=== PATIENT | female | born 1965 | race Caucasian/White ===

== ENCOUNTER → 2020-11-16 13:42 | Outpatient (BNVA) | payer OTHER, SELFPAY | PROVIDERS: Visit Provider Physician Assistant | DX: K21.9 Gastro-esophageal reflux disease without esophagitis (principal); K59.09 Other constipation; Z12.11 Encounter for screening for malignant neoplasm of colon | CPT/HCPCS: Q3014 ==

== ENCOUNTER 2021-02-02 09:56 | Outpatient (REF) | payer OTHER, SELFPAY ==
--- NOTE | ~2021-02-02 | XR_ITS ---
EXAMINATION: LEFT KNEE AND LEFT ANKLE X-RAYS CLINICAL INFORMATION: Pain COMPARISON: None TECHNIQUE: 4 views of the left knee and 3 views of the left ankle FINDINGS: Left knee: Bone alignment is normal. No fracture or dislocation is seen. There is a sclerotic density in the medial femoral condyle probably representing a bone island. Joint spaces are normal. There is no joint effusion. Left ankle: Bone alignment is normal. No fracture or dislocation is seen. The ankle mortise is normal. There may be arthritis or partial ankylosis of the posterior calcaneal talar joint. Soft tissues are unremarkable. XR/XR knee LT 4V IMPRESSION: Left knee: Small sclerotic density in the medial femoral condyle probably representing a bone island. 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
--- NOTE | ~2021-02-02 | XR_ITS ---
EXAMINATION: LEFT KNEE AND LEFT ANKLE X-RAYS CLINICAL INFORMATION: Pain COMPARISON: None TECHNIQUE: 4 views of the left knee and 3 views of the left ankle FINDINGS: Left knee: Bone alignment is normal. No fracture or dislocation is seen. There is a sclerotic density in the medial femoral condyle probably representing a bone island. Joint spaces are normal. There is no joint effusion. Left ankle: Bone alignment is normal. No fracture or dislocation is seen. The ankle mortise is normal. There may be arthritis or partial ankylosis of the posterior calcaneal talar joint. Soft tissues are unremarkable. XR/XR ankle LT min 3V IMPRESSION: Left knee: Small sclerotic density in the medial femoral condyle probably representing a bone island. 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
== END 2021-02-02 09:57 | disposition home or self-care (01) ==
LOC: HO.XRAY 09:56
PROVIDERS: PCP Nurse Practitioner; Visit Provider Nurse Practitioner
DX: M25.572 Pain in left ankle and joints of left foot (principal)
CPT/HCPCS: 73564; 73610

== ENCOUNTER 2021-06-14 07:33 | Day surgery (SDC) | payer OTHER, SELFPAY ==
--- NOTE | 2021-06-13 10:56 | HO.ANESPROP2 ---
Documented by User: Catherine Sharif NP 06/13/21 10:56 HPI - Anesthesia Eval Consult details Narrative: 55yo F for Colonoscopy PMFSH Active Problems Active Problems: All Active Problems (Updated 11/16/20 @ 14:15 by Jennifer Cueto PA-C) Encounter for screening colonoscopy (Acute) Chronic constipation (Acute) Acid reflux (Acute) Past Medical History Medical History Acid reflux Chronic constipation Family History Family History Unknown Colon cancer Surgical History Surgical History History of esophagogastroduodenoscopy (EGD) History of hysterectomy Social History Social History Household Members: Children Household Members Other:: daughter Alcohol intake: never Patient Tobacco Use Status: Never used Tobacco Use of substances other than those prescribed or required for medical reasons: No Are you DNR?: No Advance Directives: No Advance Directives Information Provided: Yes Recently lost weight without trying: No Patient : No Current occupational status: disabled Meds Allergies Allergy/AdvReac Type Severity Reaction Status Date / Time No Known Allergies Allergy Verified 11/16/20 13:43 Home Medications Medication Instructions Recorded Confirmed Last Taken Type docusate sodium 100 mg capsule 100 mg PO DAILY 11/16/20 03/20/21 Unknown History famotidine 20 mg tablet 20 mg PO BID 11/16/20 03/20/21 Unknown History fluoxetine 20 mg capsule 60 mg PO QAM 11/16/20 03/20/21 Unknown History sennosides 8.6 mg tablet 17.2 mg PO DAILY 11/16/20 03/20/21 Unknown History Exam Exam Date and Time: June 13, [id number] Assessment and Plan Assessment Anesthesia Assessment: Chart Reviewed Documented by User: Marilin Jones MD 06/14/21 08:39 PMFSH Past Medical History Medical History Acid reflux Chronic constipation Functional capacity: independent ambulation Patient : No Family History Family History Unknown Colon cancer Family history of problems with anesthesia: No Surgical History Surgical History History of esophagogastroduodenoscopy (EGD) History of hysterectomy History of Problems with Anesthesia: No Social History Social History Household Members: Children Household Members Other:: daughter Alcohol intake: never Patient Tobacco Use Status: Never used Tobacco Use of substances other than those prescribed or required for medical reasons: No Are you DNR?: No Advance Directives: No Advance Directives Information Provided: Yes Recently lost weight without trying: No Patient : No Current occupational status: disabled Meds Allergies Allergy/AdvReac Type Severity Reaction Status Date / Time No Known Allergies Allergy Verified 11/16/20 13:43 Home Medications Medication Instructions Recorded Confirmed Last Taken Type docusate sodium 100 mg capsule 100 mg PO DAILY 11/16/20 03/20/21 Unknown History famotidine 20 mg tablet 20 mg PO BID 11/16/20 03/20/21 Unknown History fluoxetine 20 mg capsule 60 mg PO QAM 11/16/20 03/20/21 Unknown History sennosides 8.6 mg tablet 17.2 mg PO DAILY 11/16/20 03/20/21 Unknown History Exam Airway Mallampati Class: II TM Dist: >3cm Neck ROM: Full Heart: RRR Lungs: CTA Assessment and Plan Final Anesthetic Review Family History of Problems with Anesthesia: No History of Problems with Anesthesia: No
[2021-06-14 08:00] VITALS: BP 128/72; PULSE 76; RESP 15; TEMP 36.2; O2SAT 96; BMI 26.6
[2021-06-14] MEDS: Lactated Ringers 1,000 ML 100 ML IVCONT (08:09)
--- NOTE | 2021-06-14 08:33 | MHC.SHP ---
Pre-Procedural Eval Section A Date of Service: 06/14/21 Section B Chief Complaint: Screening Relevant Family History (Specify if Yes): Yes Relevant Social History: None Present Medications: see Short Stay Collaborative assessment Medical History: Significant History (Acid reflux Chronic constipation) History of Previous Operations: Relevant previous surgery/procedure and date(s) (hysterectomy) Allergies: Allergies Allergy/AdvReac Type Severity Reaction Status Date / Time No Known Allergies Allergy Verified 11/16/20 13:43 Review of Systems Sugical H&P ROS: Negative: Constitution, Cardiovascular, Respiratory, Neurological, Psychiatric, Hem-Onc, Allergic/Immunologic, Gastrointestinal, Genitourinary, Musculoskeletal, Integumentary, Endocrine and Eyes/Ears/Nose/Throat Exam Surgical H&P Exam: Normal: HEENT, Normal: Heart, Normal: Lungs, Normal: Extremities, Normal: Abdomen, Normal: Skin and Normal: Neurological Plan Diagnosis/Plan: Unchanged I have reviewed the history and physical and performed a pertinent physical examination on my patient. No changes have occurred unless specified.
--- NOTE | 2021-06-14 08:46 | P.BOP_ITS ---
Brief Operative Note Date of Service: 06/14/21 Pre-op diagnosis: screening colon Post-op diagnosis: same Procedure: see op note Surgeon: Jairo Ash MD Anesthesia: MAC Was an Traffic Engineer used for this Procedure?: No Estimated blood loss (mL): 0 Condition: stable Disposition: PACU
--- NOTE | 2021-06-14 08:47 | W.PM.OPN ---
Operative Note Operative Note Date of Service: 06/14/21 Narrative: Operative Information Procedure Description: Colonoscopy COLONOSCOPY Instrument: Olympus variable stiffness pediatric scope 190L Colonoscopy Monitoring: Vital signs and clinical assessment, continuous EKG monitoring, Pulse oximetry, Carbon Dioxide monitoring and blood pressure monitoring were done throughout the procedure. Colon withdrawal time was 8 minutes. Procedure: The patient was placed in the left lateral decubitis position and pre-procedure medications were administered. After a digital rectal examination of the ano-rectum, the video colonoscope was inserted into the rectum and advanced through the colon to the cecum/TI. The colonoscope was slowly withdrawn in a retrograde panoramic fashion and the colon mucosa was carefully examined including a retroflexed view of the rectum. Findings and interventions are described below. Procedure Difficulty:moderate due to v tight sigmoid Findings: Terminal Ileum-normal Cecum:normal Ascending Colon: normal Transverse Colon - 8-9 mm sessile polyp removed with forceps Descending Colon:normal Sigmoid Colon: severe diverticulosis with mucosal hypertrophy and narrowing of lumen Rectum: Retroflexion with small internal hemorrhoids, grade I with skin tag Anorectum - normal Colon preparation: [place] Bowel Preparation Scale Right colon; 2 Transverse colon: 3 Left colon; 2 (0 = Unprepared colon segment with mucosa not seen due to solid stool that cannot be cleared. 1 = Portion of mucosa of the colon segment seen, but other areas of the colon segment not well seen due to staining, residual stool and/or opaque liquid. 2 = Minor amount of residual staining, small fragments of stool and/or opaque liquid, but mucosa of colon segment seen well. 3 = Entire mucosa of colon segment seen well with no residual staining, small fragments of stool or opaque liquid) Impression and Post Procedure Diagnosis: polyp internal hemorrhoids diverticular disease Plan: High fiber diet leaflet Avoid straining at stool, epsom salts and sitz bath, anusol supps or cream Repeat Colonoscopy in 5-7 years if adenomatous polyp, 10 years if hyperplastic or earlier if clinically indicated Above findings were reviewed with the patient and relevant handouts were provided if indicated.
[2021-06-14 09:07] VITALS: BP 121/72; PULSE 78; RESP 16; TEMP 36.9; O2SAT 98
[2021-06-14 09:35] VITALS: BP 114/67; PULSE 66; RESP 16; TEMP 36.9; O2SAT 99
--- NOTE | 2021-06-14 11:42 | HO.POSTANES ---
Post Anesthesia Evaluation Post Anesthesia Evaluation Vital Signs: Vital Signs Temp Pulse Resp BP Pulse Ox 06/14/21 09:35 98.5 F 66 16 114/67 99 06/14/21 09:07 98.5 F 78 16 121/72 98 06/14/21 08:00 97.2 F 76 15 128/72 96 Anesthesia: Monitored Mental Status: Awake Pain Control: Satisfactory Nausea/Vomiting: None Hydration: Adequate Anesthesia-Related Issues: No Anes. Related Issues
== END 2021-06-14 10:09 | disposition home or self-care (01) ==
PROVIDERS: PCP Nurse Practitioner; Visit Provider Internal Medicine Gastroenterology
PROC: 0DJD8ZZ Inspection of Lower Intestinal Tract, Via Natural or Artificial Opening Endoscopic (ICD-10-PCS; CPT 45378; principal; 2021-06-14 08:30)
DX: Z12.11 Encounter for screening for malignant neoplasm of colon (principal); D12.3 Benign neoplasm of transverse colon; K57.30 Diverticulosis of large intestine without perforation or abscess without bleeding; K64.0 First degree hemorrhoids; K64.4 Residual hemorrhoidal skin tags; K59.09 Other constipation; K21.9 Gastro-esophageal reflux disease without esophagitis; Z79.899 Other long term (current) drug therapy
CPT/HCPCS: 45380; 88305

== ENCOUNTER → 2021-12-13 08:34 | Outpatient (BNVA) | payer OTHER, SELFPAY | PROVIDERS: PCP Nurse Practitioner; Referring Provider Nurse Practitioner; Visit Provider Physician Assistant | DX: K21.9 Gastro-esophageal reflux disease without esophagitis (principal); K63.5 Polyp of colon; K57.30 Diverticulosis of large intestine without perforation or abscess without bleeding; K64.9 Unspecified hemorrhoids | CPT/HCPCS: 99212 ==

== ENCOUNTER 2021-12-20 14:39 | Outpatient (REF) | payer OTHER, SELFPAY ==
--- NOTE | ~2021-12-20 | US_ITS ---
EXAMINATION: US RETROPERITONEAL LIMITED (RENAL ONLY) CLINICAL INFORMATION: Abdominal pain. COMPARISON: Ultrasound abdomen complete 07/06/2019. TECHNIQUE: Real-time imaging of the kidneys. FINDINGS: RIGHT KIDNEY: 10.9 x 4.8 x 5.5 cm (SAG x AP x TRV). The kidney is normal in size, contour, and echogenicity. Renal cortical thickness is normal. No focal parenchymal lesions or hydronephrosis. At the upper pole, a 3 mm nonobstructing calculus is seen, with twinkle artifact. LEFT KIDNEY: 9.8 x 5.7 x 5.1 cm (SAG x AP x TRV). The kidney is normal in size, contour, and echogenicity. Renal cortical thickness is normal. No focal parenchymal lesions. There is mild pelviectasis, without juana hydronephrosis. At the interpolar aspect, 4 mm and 4 mm nonobstructing calculi are seen, with twinkle artifact. US/US renal BI IMPRESSION: Small nonobstructing bilateral renal calculi are seen. There is mild left pelviectasis. No juana hydronephrosis is noted bilaterally.
== END 2021-12-20 14:40 | disposition home or self-care (01) ==
LOC: HO.US 14:39
PROVIDERS: Visit Provider Nurse Practitioner
DX: R10.9 Unspecified abdominal pain (principal)
CPT/HCPCS: 76775

== ENCOUNTER 2021-12-29 11:36 | Outpatient (REF) | payer OTHER, SELFPAY ==
--- NOTE | ~2021-12-29 | MM_ITS ---
EXAMINATION: MM SCREENING DIGITAL BREAST TOMOSYNTHESIS, BILATERAL CLINICAL INFORMATION: Screening. Asymptomatic. The lifetime risk of breast cancer based on the Tyrer-Cuzick Model is 5%. COMPARISON: Mammography: 04/27/2020, 12/29/2018, 06/18/2018, 12/24/2017 TECHNIQUE: Digital breast tomosynthesis is performed in both the craniocaudal and mediolateral oblique views along with computer-aided detection (CAD). Synthesized 2D images are generated from the tomosynthesis. FINDINGS: There are scattered areas of fibroglandular density (ACR BI-RADS breast composition Category b). There are no significant masses, abnormal calcifications, or other abnormalities. Parenchymal pattern is similar to prior studies. No developing density or architectural abnormality. Biopsy clip marker again noted central posterior left breast. The axilla and skin contours are unremarkable. MM/MM tomosynthesis screening BI IMPRESSION: No mammographic evidence of malignancy. ASSESSMENT: BI-RADS 1: Negative RECOMMENDATION: Routine annual mammography screening. This patient's information was entered into a reminder system with a target due date for their next mammogram.
== END 2021-12-29 11:37 | disposition home or self-care (01) ==
LOC: HO.MAMMO 11:36
PROVIDERS: PCP Nurse Practitioner; Visit Provider Nurse Practitioner
DX: Z12.31 Encounter for screening mammogram for malignant neoplasm of breast (principal)
CPT/HCPCS: 77063; 77067

== ENCOUNTER 2023-01-01 14:10 | Outpatient (REF) | payer OTHER, SELFPAY ==
--- NOTE | ~2023-01-01 | US_ITS ---
EXAMINATION: US RETROPERITONEAL LIMITED (RENAL ONLY) CLINICAL INFORMATION: Kidney stones. COMPARISON: Renal ultrasound 12/20/2021. Ultrasound abdomen complete 07/06/2019. TECHNIQUE: Real-time imaging of the kidneys. FINDINGS: RIGHT KIDNEY: 10.0 x 4.6 x 5.2 cm (SAG x AP x TRV). The kidney is normal in size, contour, and echogenicity. Renal cortical thickness is normal. No calculi or focal parenchymal lesions. Previously identified small stone in the upper pole not appreciated. Mild fullness of the right renal pelvis. No caliectasis. LEFT KIDNEY: 9.9 x 5.3 x 4.8 cm (SAG x AP x TRV). The kidney is normal in size, contour, and echogenicity. Renal cortical thickness is normal. 2 mm stone in the midpole. No focal parenchymal lesions or hydronephrosis. The liver is echogenic. US/US renal BI IMPRESSION: Small left renal stone. Mild fullness of the right renal pelvis. No caliectasis.
== END 2023-01-01 14:11 | disposition home or self-care (01) ==
LOC: HO.US 14:10
PROVIDERS: Visit Provider General Practice
DX: R10.9 Unspecified abdominal pain (principal)
CPT/HCPCS: 76775

== ENCOUNTER → 2023-01-17 09:39 | Outpatient (BNVA) | payer OTHER, SELFPAY | PROVIDERS: PCP Nurse Practitioner; Visit Provider Nurse Practitioner Family | DX: N20.0 Calculus of kidney (principal) | CPT/HCPCS: 99202 ==